=== PATIENT | female | born 1985 | race African-American/Black ===

== ENCOUNTER 2022-09-20 15:59 | Emergency (ER) | payer MEDICAID ==
[~2022-09-20] VITALS: Ht 165 cm; Wt 136.0 kg
--- NOTE | 2022-09-20 16:23 | ED Lower Extremity ---
General Chief Complaint: Lower Extremity Stated Complaint: KNEE PAIN Nursing Triage Note: PT CO OF L KNEE PAIN AND LOCKING INTO PLACE AT TIMES. PT STATES GOING ON FOR ABOUT A MONTH AND HAS GOTTEN WORSE Source: patient Exam Limitations: no limitations History of Present Illness Date Seen by Provider: Sep 20, 2022 Time Seen by Provider: 16:20 Initial Comments Patient is a 37-year-old female who presents ED with left knee pain. Knee pain over the past month. She reports a grinding sensation and popping sensation with walking. She feels like her left knee wants to give out and locks. Denies of any swelling bruising or redness or any specific injury. Intermittently taken Tylenol ibuprofen as needed. Patient states pain seems to be worse when she bends down or walks. Sharp pain on the left lateral knee. No history of previous knee fracture or scope. Denies fever, chills, nausea, vomit, diarrhea Allergies and Home Medications Allergies Coded Allergies: No Known Drug Allergies (Unverified , 09/20/22) Patient Home Medication List Home Medication List Reviewed: Yes Review of Systems Constitutional: No chills, No diaphoresis, No malaise, No weakness EENTM: No ear pain, No blurred vision Respiratory: No cough, No dyspnea on exertion Cardiovascular: No chest pain Gastrointestinal: No abdominal pain, No diarrhea, No nausea, No vomiting Genitourinary: No decreased output, No discharge Musculoskeletal: No back pain; joint pain; No joint swelling Skin: No change in color, No change in hair/nails All Other Systems Reviewed Negative Unless Noted: Yes Past Eotmann-Jaapzc-Xplenf Hx Patient Social History Tobacco Use?: Yes Tobacco type used: Cigars Smoking Status: Current Everyday Smoker Use of E-Cig and/or Vaping dev: Yes E-Cig or Vaping type used: Synthetic Cannabinoids Use of E-Cig and/or Vaping Matt: Current Someday User Substance use?: No Alcohol Use?: No Pt feels they are or have been: No Immunizations Up To Date First/Initial COVID19 Vaccinat: YES Second COVID19 Vaccination [place]: YES Past Medical History Surgery/Hospitalization HX: ASHTMA Physical Exam Vital Signs Vital Signs - First Documented 09/20/22 16:05 Temp 36.8 Pulse 108 Resp 18 B/P (MAP) 151/99 (116) Pulse Ox 99 Capillary Refill : Less Than 3 Seconds Height, Weight, BMI Height: '" Weight: lbs. oz. kg; 49.00 BMI Method: General Appearance: WD/WN, no apparent distress HEENT: PERRL/EOMI, normal ENT inspection, TMs normal, pharynx normal Neck: non-tender, full range of motion, supple, normal inspection Cardiovascular: regular rate, rhythm, no edema, no gallop, no JVD Respiratory: chest non-tender, lungs clear, normal breath sounds, no respiratory distress, no accessory muscle use Gastrointestinal: normal bowel sounds, non tender, soft, no organomegaly Hips: bilateral hip non-tender Knees: left knee pain, left knee soft tissue tenderness, left knee swelling, left knee other (Normal patella tracking with crepitus. No pain with valgus or varus stress. Negative anterior and posterior drawer test. Negative Rachel test) Ankles: bilateral ankle non-tender, bilateral ankle normal inspection, bilateral ankle normal range of motion Feet: bilateral foot non-tender, bilateral foot normal inspection, bilateral foot normal range of motion Progress/Results/Core Measures Results/Orders My Orders Orders - CHANTAL EDEN Knee, Left, 3 Views (09/20/22 16:18) Vital Signs/I&O 09/20/22 16:05 Temp 36.8 Pulse 108 Resp 18 B/P (MAP) 151/99 (116) Pulse Ox 99 Blood Pressure Mean: 116 Departure Communication (PCP) Reviewed previous ER visit, H&P, lab testing. Differential diagnosis knee sprain, patellofemoral syndrome, ligament versus meniscus injury. Due to continuous pain for the past month x-ray was ordered which did not show any evidence of acute fracture or large joint effusion. She feels like her left knee is wanting to give out with clicking and popping. She does have some crepitus with patella tracking. Manipulation of the patella resulted in pain. No specific locking or pain with Roxy test. Discussed with patient recommend stretching, ice and anti-inflammatories. Discussed exercises to help strengthen the left knee. Brace for comfort. Likely benefit with outpatient orthopedic follow-up for further evaluation. Worse with going up and down stairs and movement. Further evaluation with MRI may be needed at some point however I do think proper formal PT and anti-inflammatories would benefit patient at this time Impression Primary Impression: Knee pain Disposition: HOME, SELF-CARE Condition: Stable Departure-Patient Inst. Decision time for Depature: 16:22 Referrals: NO,LOCAL PHYSICIAN (PCP) Primary Care Physician YUDI ESCALONA MD Patient Instructions: Knee Pain ED Add. Discharge Instructions: Recommend ice, anti-inflammatories. Work on strengthening the left knee with physical therapy such as flexion and extension exercises. Recommend orthopedic follow-up for further evaluation. Brace for comfort. All discharge instructions reviewed with patient and/or family. Voiced un derstanding. CHANTAL EDEN Sep 20, 2022 16:23
--- NOTE | 2022-09-20 16:38 | Diagnostic Imaging Report ---
INDICATION: Left knee pain. COMPARISON: None available. TECHNIQUE: Three radiographs of the left knee dated 09/20/2022. FINDINGS: No acute fracture or dislocation. No destructive osseous process. Joint spaces are well-maintained. No significant osteophyte formation. No knee joint effusion. No suspicious radiopaque foreign body. IMPRESSION: No acute osseous abnormality. Dictated by: Dictated on workstation # [id number]
[2022-09-20 16:50] VITALS: BP 151/99
== END 2022-09-20 16:52 | disposition home or self-care (01) ==
LOC: ER 16:01
DX: R05.9 Cough, unspecified (principal)
CPT/HCPCS: 73562